=== PATIENT | female | born 1965 | race Caucasian/White ===

== ENCOUNTER 2025-05-26 12:34 | Outpatient (REF) | payer OTHER, SELFPAY | END 2025-05-26 12:35 | disposition home or self-care (01) | LOC: HO.MAMMO 12:34 | PROVIDERS: PCP Internal Medicine; Visit Provider Internal Medicine | DX: Z12.31 Encounter for screening mammogram for malignant neoplasm of breast (principal) | CPT/HCPCS: 77063; 77067 ==

== ENCOUNTER → 2025-05-26 12:45 | Outpatient (BNV) | payer OTHER, SELFPAY | PROVIDERS: PCP Internal Medicine; Visit Provider Internal Medicine | DX: Z12.31 Encounter for screening mammogram for malignant neoplasm of breast (principal) | CPT/HCPCS: 77063; 77067 ==